=== PATIENT | male | born 1980 ===

== ENCOUNTER → 2022-12-25 | Emergency (ER) | payer SELFPAY ==
[~2022-12-25] VITALS: Ht 162.6 cm; Wt 85.0 kg
[~2022-12-25] MED LIST: NO HOME MEDS
[2022-12-25 18:41] VITALS: BP 138/92; PULSE 71; RESP 18; TEMP 98.8; O2SAT 98
== END | disposition home or self-care (01) ==
LOC: ER 18:23
DX: H92.01 Otalgia, right ear (principal); H91.91 Unspecified hearing loss, right ear
CPT/HCPCS: 69209; 99282